=== PATIENT | female | born 1980 | race Caucasian/White ===

== ENCOUNTER 2017-12-07 10:58 | Observation (INO) ==
[2017-12-07 11:29] LABS: Basophils % 0.3 %; Eosinophils % 0.4 %; Hematocrit 41.5 % (35.3-44.9); Hemoglobin 13.4 g/dL (11.5-15.4); Immature Granulocytes % 0.3 % (0-4); Lymphocytes # 1.9 K/mcL (0.6-4.6); Lymphocytes % 27.7 %; Mean Corpuscular HGB Conc 32.3 g/dL (31.6-35.5); Mean Corpuscular Hemoglobin 28.5 pg (28.0-33.3); Mean Corpuscular Volume 88.3 fL (83.0-100.0); Mean Platelet Volume 10.8 fL (9.4-12.4); Monocytes # 0.4 K/mcL (0.0-1.3); Monocytes % 5.7 %; Neutrophils # 4.4 K/mcL (1.6-8.9); Platelet Count 241 K/mcL (140-400); Red Cell Distribution Width 12.2 % (11.5-14.5); Segmented Neutrophils % 65.6 %
[2017-12-07 11:48] LABS: BUN/Creatinine Ratio 14 (6-26); Blood Urea Nitrogen 9 mg/dL (6-20); Calcium 9.7 mg/dL (8.6-10.3); Carbon Dioxide 28 mEq/L (23-29); Chloride 106 mEq/L (98-107); Glucose 137 mg/dL (70-105); Osmolality,Calculated 291 (280-300); Potassium 3.4 mEq/L (3.5-5.1); Sodium 140 mEq/L (136-145); eGFR For Non-African Americans > 60 (> 60)
--- NOTE | 2017-12-07 11:54 | Emergency Department Note ---
Disposition Clinical Impression: Depression Qualifiers: Depression Type: unspecified Qualified Code(s): F32.9 - Major depressive disorder, single episode, unspecified Disposition: Admitted As Inpatient Psych HPI - General Chief Complaint: ED Psychiatric Symptoms Stated Complaint: SI Source: patient, EMS Limitations: no limitations Nursing Notes Reviewed: Yes Vital Signs Reviewed: Yes - History of Present Illness HPI Narrative: Patient presents today for evaluation after she sought help with Chaz Gambino who is her primary care physician. He handles her diabetes. She went to talk with him secondary to recent acute life stressors. Her was recently arrested for dealing drugs. He states that he has been doing drugs for the last 3 years. He does heroin 12-13 times a day. She states that she had no idea. She is blindsided. Patient states that he has cheated on her in the past and all of her emotions have come to the forefront. She had thoughts of decreased self worth. She thought it might be better off without her. She thought about driving her car into a telephone pole. The patient presents now stating that she was just very stressed. Patient states no homicidal thoughts or visual or auditory hallucinations. Patient has not otherwise been plugged into counseling or had other resources. Patient will need 1A evaluation. - Related Data Home Medications Medication Instructions Recorded Confirmed No Known Home Drugs 12/07/17 12/07/17 Allergies Allergy/AdvReac Type Severity Reaction Status Date / Time diltiazem [From Cardizem] Allergy Hives Verified 12/07/17 11:05 levofloxacin [From Levaquin] Allergy Hives Verified 12/07/17 11:05 Review of Systems: CONSTITUTIONAL: No weight loss, fever, chills, weakness or fatigue. HEENT: Eyes: No visual changes. Ears, Nose, Throat: No hearing loss, difficulty talking or unable to swallow. SKIN: No rash or itching. CARDIOVASCULAR: No chest pain, chest pressure or chest discomfort. No palpitations or edema. RESPIRATORY: No shortness of breath, cough or sputum. GASTROINTESTINAL: No anorexia, nausea, vomiting or diarrhea. No abdominal pain or blood. GENITOURINARY: No burning on urination or hematuria. NEUROLOGICAL: No headache, dizziness, syncope, paralysis, ataxia, numbness or tingling in the extremities. No change in bowel or bladder control. MUSCULOSKELETAL: No muscle pain, back pain, joint pain or stiffness. Psych: Suicidal thoughts and depression Past Medical History - Past Medical History Medical history: Reports: diabetes, SVT Surgical history: Reports: non-contributory Psychiatric history: Reports: no psych history [employer] history: Reports: non-contributory, bilateral tubal ligation - Social History Smoking Status: Never smoker Smokeless Tobacco Status: No Alcohol use: Reports: none Drug use: Reports: none Physical Exam General: Well appearing, nontoxic, no acute distress Head: Normocephalic Atraumatic Eyes: PERRL, EOMI ENT: Airway patent, no stridor Neck: supple, no meningismus Chest: Lungs clear to auscultation bilateral Cardiac: Regular rate and rhythm, no murmurs, rubs or gallops Abdomen: soft, nontender, nondistended; no guarding, rebound, or tenderness to percussion Musculoskeletal: Calves symmetric, nontender, no palpable cord Skin: No rash, normal skin tone Neuro: Alert and Oriented to person, place, and time; No focal deficit, CN 2-12 symmetric and intact - General Limitations: no limitations General appearance: alert, in no apparent distress Course Vital Signs Temperature 98.1 F 12/07/17 11:01 Pulse Rate 76 12/07/17 11:01 Respiratory Rate 16 12/07/17 11:01 Blood Pressure 135/87 12/07/17 11:01 O2 Sat by Pulse Oximetry 98 12/07/17 11:01 Temperature 98.0 F 12/07/17 14:20 Pulse Rate 85 12/07/17 14:20 Respiratory Rate 16 12/07/17 14:20 Blood Pressure 144/95 12/07/17 14:20 O2 Sat by Pulse Oximetry 98 12/07/17 11:01 Oxygen Delivery Oxygen Delivery Room Air Psych - Lab Data Result diagrams: 12/07/17 11:17 12/07/17 11:17 Lab Results 12/07/17 12/07/17 12/07/17 Range/Units 11:17 11:17 11:35 WBC 6.7 (4.3-11.1) K/mcL RBC 4.70 (3.82-4.97) M/mcL Hgb 13.4 (11.5-15.4) g/dL Hct 41.5 (35.3-44.9) % MCV 88.3 (83.0-100.0) fL MCH 28.5 (28.0-33.3) pg MCHC 32.3 (31.6-35.5) g/dL RDW 12.2 (11.5-14.5) % Plt Count 241 (140-400) K/mcL MPV 10.8 (9.4-12.4) fL Immature Gran % 0.3 (0-4) % Seg Neutrophils % 65.6 % Lymphocytes % 27.7 % Monocytes % 5.7 % Eosinophils % 0.4 % Basophils % 0.3 % Neutrophils # 4.4 (1.6-8.9) K/mcL Lymphocytes # 1.9 (0.6-4.6) K/mcL Monocytes # 0.4 (0.0-1.3) K/mcL Eosinophils # 0.0 (0.0-0.6) K/mcL Basophils # 0.0 (0.0-0.2) K/mcL Sodium 140 (136-145) mEq/L Potassium 3.4 L (3.5-5.1) mEq/L Chloride 106 (98-107) mEq/L Carbon Dioxide 28 (23-29) mEq/L BUN 9 (6-20) mg/dL Creatinine 0.63 (0.60-1.20) mg/dL Est GFR ( Amer) > 60 (> 60) Est GFR (Non-Af Amer) > 60 (> 60) BUN/Creatinine Ratio 14 (6-26) Glucose 137 H (70-105) mg/dL Calculated Osmolality 291 (280-300) Calcium 9.7 (8.6-10.3) mg/dL Urine Color (Yellow) Urine Clarity (Clear) Urine pH (5.0-8.0) pH Units Ur Specific [place] (1.010-1.025) Urine Protein (Neg-Trace) mg/dL Urine Glucose (UA) (Normal) mg/dL Urine Ketones (Negative) mg/dL Urine Blood (Negative) Urine Nitrite (Negative) Urine Bilirubin (Negative) Urine Urobilinogen (Normal) mg/dL Ur Leukocyte Esterase (Negative) Urine Microscopic RBC (0-3) per hpf Urine Microscopic WBC (0-3) per hpf Ur Squamous Epith Cells (None-Few) per lpf Urine Bacteria (None-Few) per hpf Hyaline Casts (None-Few) per lpf Ur Culture Indicated? (NO) Urine Test Negative (Negative) Urine Opiates Screen (Rzrafy=537) ng/mL Ur Barbiturates Screen (Fypufa=158) ng/mL Ur Phencyclidine Scrn (Cutoff=25) ng/mL Ur Amphetamines Screen (Klbjgh=1900) ng/mL U Benzodiazepines Scrn (Bnvkxd=302) ng/mL Urine Cocaine Screen (Cutoff= 300) ng/mL U Marijuana (THC) Screen (Cutoff = 50) ng/mL Ethyl Alcohol < 10 (0-10) mg/dL 12/07/17 12/07/17 Range/Units 11:35 11:35 WBC (4.3-11.1) K/mcL RBC (3.82-4.97) M/mcL Hgb (11.5-15.4) g/dL Hct (35.3-44.9) % MCV (83.0-100.0) fL MCH (28.0-33.3) pg MCHC (31.6-35.5) g/dL RDW (11.5-14.5) % Plt Count (140-400) K/mcL MPV (9.4-12.4) fL Immature Gran % (0-4) % Seg Neutrophils % % Lymphocytes % % Monocytes % % Eosinophils % % Basophils % % Neutrophils # (1.6-8.9) K/mcL Lymphocytes # (0.6-4.6) K/mcL Monocytes # (0.0-1.3) K/mcL Eosinophils # (0.0-0.6) K/mcL Basophils # (0.0-0.2) K/mcL Sodium (136-145) mEq/L Potassium (3.5-5.1) mEq/L Chloride (98-107) mEq/L Carbon Dioxide (23-29) mEq/L BUN (6-20) mg/dL Creatinine (0.60-1.20) mg/dL Est GFR ( Amer) (> 60) Est GFR (Non-Af Amer) (> 60) BUN/Creatinine Ratio (6-26) Glucose (70-105) mg/dL Calculated Osmolality (280-300) Calcium (8.6-10.3) mg/dL Urine Color Yellow (Yellow) Urine Clarity Cloudy A (Clear) Urine pH 7.0 (5.0-8.0) pH Units Ur Specific [place] 1.018 (1.010-1.025) Urine Protein Trace (Neg-Trace) mg/dL Urine Glucose (UA) Normal (Normal) mg/dL Urine Ketones Trace H (Negative) mg/dL Urine Blood Negative (Negative) Urine Nitrite Negative (Negative) Urine Bilirubin Negative (Negative) Urine Urobilinogen Normal (Normal) mg/dL Ur Leukocyte Esterase Large H (Negative) Urine Microscopic RBC 50-100 H (0-3) per hpf Urine Microscopic WBC 5-15 H (0-3) per hpf Ur Squamous Epith Cells Many H (None-Few) per lpf Urine Bacteria Moderate H (None-Few) per hpf Hyaline Casts Few (None-Few) per lpf Ur Culture Indicated? NO. (NO) Urine Test (Negative) Urine Opiates Screen Negative (Xqoqll=606) ng/mL Ur Barbiturates Screen Negative (Watbsy=879) ng/mL Ur Phencyclidine Scrn Negative (Cutoff=25) ng/mL Ur Amphetamines Screen Negative (Dbsimb=1498) ng/mL U Benzodiazepines Scrn Negative (Nyxojq=726) ng/mL Urine Cocaine Screen Negative (Cutoff= 300) ng/mL U Marijuana (THC) Screen Negative (Cutoff = 50) ng/mL Ethyl Alcohol (0-10) mg/dL Psychiatric Medical Clearance - Medical Clearance Checklist Medical History: Abdominal pain (Inactive) Acute bronchitis (Inactive) Chest pain (Inactive) Dental abscess (Inactive) GERD (gastroesophageal reflux disease) (Inactive) Lateral epicondylitis of right elbow (Inactive) Syncope (Inactive) No Social History Section defined Current Vitals: Last Vital Signs Temp 98.0 F 12/07/17 14:20 Pulse 85 12/07/17 14:20 Resp 16 12/07/17 14:20 BP 144/95 12/07/17 14:20 Pulse Ox 98 12/07/17 11:01 Psychiatric Lab Panel: Drug Levels and Toxicity 12/07/17 12/07/17 11:17 11:35 Urine Opiates Screen Negative Ur Barbiturates Screen Negative Ur Phencyclidine Scrn Negative Ur Amphetamines Screen Negative U Benzodiazepines Scrn Negative Urine Cocaine Screen Negative U Marijuana (THC) Screen Negative Ethyl Alcohol < 10 Abnormal Labs: Abnormal lab results Potassium 3.4 mEq/L (3.5-5.1) L 12/07/17 11:17 Glucose 137 mg/dL (70-105) H 12/07/17 11:17 Urine Clarity Cloudy (Clear) A 12/07/17 11:35 Urine Ketones Trace mg/dL (Negative) H 12/07/17 11:35 Ur Leukocyte Esterase Large (Negative) H 12/07/17 11:35 Urine Microscopic RBC 50-100 per hpf (0-3) H 12/07/17 11:35 Urine Microscopic WBC 5-15 per hpf (0-3) H 12/07/17 11:35 Ur Squamous Epith Cells Many per lpf (None-Few) H 12/07/17 11:35 Urine Bacteria Moderate per hpf (None-Few) H 12/07/17 11:35 Statement of Medical Clearance: I have evaluated the patient, reviewed diagnostic information, and certify that the patient's medical condition is sufficiently stable that transfer to the psychiatric unit does not pose a significant risk of deterioration.
--- NOTE | 2017-12-07 11:55 | Emergency Department Note ---
START Narrative - START START: I examined this patient and my medical decision-making was reviewed with the emergency medicine resident. I agree with the documented findings, disposition and treatment plan as described except to the extent set forth below. Patient seen with emergency medicine resident Dr. Garth Pedroza, Please see a copy of his note for details of the H&P, ED evaluation, management and disposition. I have independently evaluated the patient and confirmed appropriate portions of the history and physical exam. Briefly: 37-year-old female comes in [facility] has reasonable mental health services will admit her for suicidal ideations. She plans" driving her car into a wall". Patient's physical examination is benign. No prior inpatient mental health hospitalizations. Awaiting screening labs and then patient will be admitted to mental health services. Disposition pending.
[2017-12-07 12:04] LABS: Bilirubin,Urine Negative (Negative); Blood,Urine Negative (Negative); Clarity,Urine Cloudy (Clear); Color,Urine Yellow (Yellow); Glucose,Urine (UA) Normal (Normal); Ketones,Urine Trace mg/dL (Negative); Leukocyte Esterase,Urine Large (Negative); Nitrite,Urine Negative (Negative); Protein,Urine Trace mg/dL (Neg-Trace); Specific Gravity,Urine 1.018 (1.010-1.025); Urobilinogen,Urine Normal (Normal)
[2017-12-07 12:06] LABS: Amphetamine Screen,Urine Negative ng/mL (Cutoff=1000); Barbiturate Screen,Urine Negative ng/mL (Cutoff=200); Benzodiazepines Screen,Urine Negative ng/mL (Cutoff=200); Cannabinoid Screen,Urine Negative ng/mL (Cutoff = 50); Cocaine Screen,Urine Negative ng/mL (Cutoff= 300); Opiate Screen,Urine Negative ng/mL (Cutoff=300); Phencyclidine Screen,Urine Negative ng/mL (Cutoff=25)
[2017-12-07 12:07] LABS: Bacteria,Urine Moderate per hpf (None-Few); Hyaline Casts,Urine Few per lpf (None-Few); RBC,Urine 50-100 per hpf (0-3); Squamous Epithelial Cell,Urine Many per lpf (None-Few)
[2017-12-07 13:39] LABS: Ethanol < 10 mg/dL (0-10)
[2017-12-07] MEDS ORDERED: *HR* LORazepam 2 MG/ML VIAL IM PRN (16:11)
[2017-12-07] MEDS ORDERED: Acetaminophen 325 MG TABLET PO PRN (16:11)
[2017-12-07] MEDS ORDERED: Mag Hydrox/Al Hydrox/Simeth 30 ML UDC PO PRN (16:11)
[2017-12-07] MEDS ORDERED: MOM Conc 10 ML UD.LIQ PO PRN (16:11)
[2017-12-07] MEDS ORDERED: hydrOXYzine pamoate 25 MG CAPSULE PO PRN (16:11)
[2017-12-07] MEDS ORDERED: *HR* LORazepam 1 MG TABLET PO PRN (16:11)
[2017-12-07] MEDS ORDERED: Haloperidol Lactate 5 MG/ML VIAL IM PRN (16:11)
[2017-12-07] MEDS ORDERED: traZODone 50 MG TABLET PO PRN (16:11)
[2017-12-08 09:31] VITALS: BP 135/99
--- NOTE | 2017-12-08 10:38 | Psychiatry History & Physical ---
Date of Encounter: 12/08/17 History of Present Illness Medicare Admission Attestation: For traditional Medicare patients the provided hospital inpatient services are reasonable and necessary and in the case of services not specified as inpatient -only under 42 CFR 419.22 (n), that they are appropriately provided as inpatient services in accordance 42 CFR 412.3. For Critical Access Hospital the patient may reasonably be expected to be discharged or transferred to a hospital within 96 hours after admission to the Critical Access Hospital. History of Present Illness: Ms. Saha is a 37 year old female Past Med Surg Social Fam HX - Past Medical History Medical history: diabetes, SVT - Past Surgical History Surgical History: non-contributory - Social History Smoking Status: Never smoker Smokeless Tobacco Status: No Alcohol use: none Drug use: none Medications & Allergies No Known Home Drugs 12/07/17 [History] 3 Allergy/AdvReac Type Severity Reaction Status Date / Time diltiazem [From Cardizem] Allergy Hives Verified 12/07/17 11:05 levofloxacin [From Levaquin] Allergy Hives Verified 12/07/17 11:05 Results - Vital Signs Vital signs: Temp Pulse Resp BP Pulse Ox 98.1 F 105 16 135/99 98 12/08/17 09:00 12/08/17 09:00 12/08/17 09:00 12/08/17 09:00 12/07/17 11:01 - Labs Labs: Laboratory Last Values WBC 6.7 K/mcL (4.3-11.1) 12/07/17 11:17 RBC 4.70 M/mcL (3.82-4.97) 12/07/17 11:17 Hgb 13.4 g/dL (11.5-15.4) 12/07/17 11:17 Hct 41.5 % (35.3-44.9) 12/07/17 11:17 MCV 88.3 fL (83.0-100.0) 12/07/17 11:17 MCH 28.5 pg (28.0-33.3) 12/07/17 11:17 MCHC 32.3 g/dL (31.6-35.5) 12/07/17 11:17 RDW 12.2 % (11.5-14.5) 12/07/17 11:17 Plt Count 241 K/mcL (140-400) 12/07/17 11:17 MPV 10.8 fL (9.4-12.4) 12/07/17 11:17 Immature Gran % 0.3 % (0-4) 12/07/17 11:17 Seg Neutrophils % 65.6 % 12/07/17 11:17 Lymphocytes % 27.7 % 12/07/17 11:17 Monocytes % 5.7 % 12/07/17 11:17 Eosinophils % 0.4 % 12/07/17 11:17 Basophils % 0.3 % 12/07/17 11:17 Neutrophils # 4.4 K/mcL (1.6-8.9) 12/07/17 11:17 Lymphocytes # 1.9 K/mcL (0.6-4.6) 12/07/17 11:17 Monocytes # 0.4 K/mcL (0.0-1.3) 12/07/17 11:17 Eosinophils # 0.0 K/mcL (0.0-0.6) 12/07/17 11:17 Basophils # 0.0 K/mcL (0.0-0.2) 12/07/17 11:17 Sodium 140 mEq/L (136-145) 12/07/17 11:17 Potassium 3.4 mEq/L (3.5-5.1) L 12/07/17 11:17 Chloride 106 mEq/L (98-107) 12/07/17 11:17 Carbon Dioxide 28 mEq/L (23-29) 12/07/17 11:17 BUN 9 mg/dL (6-20) 12/07/17 11:17 Creatinine 0.63 mg/dL (0.60-1.20) 12/07/17 11:17 Est GFR ( Amer) > 60 (> 60) 12/07/17 11:17 Est GFR (Non-Af Amer) > 60 (> 60) 12/07/17 11:17 BUN/Creatinine Ratio 14 (6-26) 12/07/17 11:17 Glucose 137 mg/dL (70-105) H 12/07/17 11:17 Calculated Osmolality 291 (280-300) 12/07/17 11:17 Calcium 9.7 mg/dL (8.6-10.3) 12/07/17 11:17 Urine Color Yellow (Yellow) 12/07/17 11:35 Urine Clarity Cloudy (Clear) A 12/07/17 11:35 Urine pH 7.0 pH Units (5.0-8.0) 12/07/17 11:35 Ur Specific [place] 1.018 (1.010-1.025) 12/07/17 11:35 Urine Protein Trace mg/dL (Neg-Trace) 12/07/17 11:35 Urine Glucose (UA) Normal mg/dL (Normal) 12/07/17 11:35 Urine Ketones Trace mg/dL (Negative) H 12/07/17 11:35 Urine Blood Negative (Negative) 12/07/17 11:35 Urine Nitrite Negative (Negative) 12/07/17 11:35 Urine Bilirubin Negative (Negative) 12/07/17 11:35 Urine Urobilinogen Normal mg/dL (Normal) 12/07/17 11:35 Ur Leukocyte Esterase Large (Negative) H 12/07/17 11:35 Urine Microscopic RBC 50-100 per hpf (0-3) H 12/07/17 11:35 Urine Microscopic WBC 5-15 per hpf (0-3) H 12/07/17 11:35 Ur Squamous Epith Cells Many per lpf (None-Few) H 12/07/17 11:35 Urine Bacteria Moderate per hpf (None-Few) H 12/07/17 11:35 Hyaline Casts Few per lpf (None-Few) 12/07/17 11:35 Ur Culture Indicated? NO. (NO) 12/07/17 11:35 Urine Test Negative (Negative) 12/07/17 11:35 Urine Opiates Screen Negative ng/mL (Aohxar=718) 12/07/17 11:35 Ur Barbiturates Screen Negative ng/mL (Bfbiyd=665) 12/07/17 11:35 Ur Phencyclidine Scrn Negative ng/mL (Cutoff=25) 12/07/17 11:35 Ur Amphetamines Screen Negative ng/mL (Prkirn=1201) 12/07/17 11:35 U Benzodiazepines Scrn Negative ng/mL (Bdqifd=287) 12/07/17 11:35 Urine Cocaine Screen Negative ng/mL (Cutoff= 300) 12/07/17 11:35 U Marijuana (THC) Screen Negative ng/mL (Cutoff = 50) 12/07/17 11:35 Ethyl Alcohol < 10 mg/dL (0-10) 12/07/17 11:17
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
== END 2017-12-08 13:20 | disposition home or self-care (01) ==
LOC: EMEROO 10:58 → INTOOBSV 14:05 → 1ANU 14:05
PROVIDERS: ADMIT Student in an Organized Health Care Education/Training Program; ATTEND Student in an Organized Health Care Education/Training Program

== ENCOUNTER 2020-10-02 16:27 | Inpatient (IN) ==
[2020-10-02] MEDS ORDERED: *HR* FentaNYL (PF) 100 MCG/2 ML VIAL ONE (20:26)
[2020-10-02] MEDS ORDERED: *HR* Propofol 200 MG/20 ML VIAL IVP ONE (20:27)
[2020-10-02] MEDS ORDERED: Ondansetron 4 MG/2 ML VIAL ONE (20:32)
[2020-10-02] MEDS ORDERED: Dexamethasone 4 MG/ML VIAL ONE (20:32)
[2020-10-02] MEDS ORDERED: *HR* Succinylcholine 200 MG/10 ML VIAL IVP ONE (20:32)
[2020-10-02] MEDS ORDERED: Lidocaine -MPF 2% 2 ML VIAL ONE (20:32)
[2020-10-02] MEDS ORDERED: *HR* HYDROmorphone PF 0.5 MG/0.5 ML SYRINGE IVP PRN (20:43)
[2020-10-02] MEDS ORDERED: Scopolamine Patch 1.5 MG PATCH.TD72 TD ONE (20:43)
[2020-10-02] MEDS ORDERED: Ondansetron 4 MG/2 ML VIAL IVP PRN (20:43)
[2020-10-02] MEDS ORDERED: Promethazine 6.25 MG in Water for inj. (sterile) 20 ML IVPB PRN (20:43)
[2020-10-02] MEDS ORDERED: *HR* OxyCODONE Immed Rel 5 MG TABLET PO PRN (20:43)
[2020-10-02] MEDS ORDERED: Isovue-300 50ML VIAL ONE (20:56)
[2020-10-02] MEDS ORDERED: Acetaminophen 325 MG TABLET PO PRN ×2 (22:33→23:52)
[2020-10-02] MEDS ORDERED: Ondansetron ODT 4 MG TAB.RAPDIS SL PRN (22:33)
[2020-10-02] MEDS ORDERED: Naloxone 0.4 MG/ML INJ IVP PRN ×2 (22:33→23:52)
[2020-10-02] MEDS ORDERED: *HR* Meperidine 25 MG/ML SYRINGE IVP PRN (22:35)
[2020-10-02] MEDS ORDERED: *HR* Labetalol 20 MG/4 ML SYRINGE IVP ONE (22:42)
[2020-10-02] MEDS ORDERED: 0.9 % Sodium Chloride 1,000 ML IVC SCH (22:45)
[2020-10-02] MEDS ORDERED: *HR* Labetalol 20 MG/4 ML SYRINGE IVP PRN (22:47)
[2020-10-02] MEDS ORDERED: Levalbuterol Neb 0.63 MG/3 ML IH STA (22:55)
[2020-10-02] MEDS ORDERED: Hyoscyamine SL 0.125 MG TAB.SUBL SL PRN (23:52)
[2020-10-02] MEDS ORDERED: *HR* OxyCODONE/APAP 5/325 TABLET PO PRN (23:52)
[2020-10-03] MEDS: 0.9 % Sodium Chloride 1,000 ML IVC SCH ×3 (00:14→15:53)
[2020-10-03 00:43] LABS: Hematocrit 35.7 % (35.3-44.9); Hemoglobin 11.3 g/dL (11.5-15.4); Immature Platelets 7.6 % (1.1-6.1); Lymphocytes # 0.1 K/mcL (0.6-4.6); Mean Corpuscular HGB Conc 31.7 g/dL (31.6-35.5); Mean Corpuscular Hemoglobin 28.2 pg (28.0-33.3); Mean Platelet Volume 11.7 fL (9.4-12.4); Red Blood Count 4.01 M/mcL (3.82-4.97); Red Cell Distribution Width 14.6 % (11.5-14.5); White Blood Count 2.2 K/mcL (4.3-11.1)
[2020-10-03 00:59] LABS: Calcium 7.8 mg/dL (8.6-10.3); Potassium 3.8 mEq/L (3.5-5.1)
[2020-10-03 01:29] LABS: Platelet Count 89 K/mcL (140-400)
[2020-10-03 01:32] LABS: Anisocytosis 1+ (Not Present); Neutrophils # 2.1 K/mcL (1.6-8.9); Platelet Estimate Decreased (Normal)
[2020-10-03] MEDS ORDERED: 0.9 % Sodium Chloride 1,000 ML IVC ONE (02:04)
[2020-10-03] MEDS ORDERED: Ringers Solution, Lactated 1,000 ML IVC ONE (04:58)
[2020-10-03 05:09] LABS: Hemoglobin 10.5 g/dL (11.5-15.4)
[2020-10-03 05:11] LABS: Hematocrit 32.6 % (35.3-44.9); Immature Platelets 5.9 % (1.1-6.1); Mean Corpuscular HGB Conc 32.2 g/dL (31.6-35.5); Mean Corpuscular Hemoglobin 28.5 pg (28.0-33.3); Mean Corpuscular Volume 88.3 fL (83.0-100.0); Mean Platelet Volume 12.2 fL (9.4-12.4); Red Blood Count 3.69 M/mcL (3.82-4.97); Red Cell Distribution Width 14.7 % (11.5-14.5); White Blood Count 8.6 K/mcL (4.3-11.1)
[2020-10-03 05:27] LABS: Platelet Count 74 K/mcL (140-400)
[2020-10-03 05:29] LABS: Calcium 7.2 mg/dL (8.6-10.3); Lymphocytes # 0.2 K/mcL (0.6-4.6); Monocytes # 0.3 K/mcL (0.0-1.3); Neutrophils # 7.8 K/mcL (1.6-8.9); Potassium 3.1 mEq/L (3.5-5.1)
[2020-10-03 05:30] LABS: Anisocytosis 1+ (Not Present); Platelet Estimate Decreased (Normal)
[2020-10-03] MEDS ORDERED: Levalbuterol 1 PUFF INHALER IH PRN (05:30)
[2020-10-03] MEDS ORDERED: Levalbuterol Neb 0.63 MG/3 ML IH PRN (05:39)
[2020-10-03] MEDS ORDERED: Levalbuterol Neb 0.63 MG/3 ML ONE (05:41)
[2020-10-03] MEDS ORDERED: *HR* Dextrose 50 % in Water (Vial) 50 ML VIAL IVP PRN (08:04)
[2020-10-03] MEDS ORDERED: D5% in Water 1,000 ML IVC PRN (08:04)
[2020-10-03] MEDS ORDERED: Dextrose Gel 15 GM/37.5 ML TUBE PO PRN ×2 (08:04)
[2020-10-03] MEDS: Ondansetron 4 MG/2 ML VIAL IVP PRN ×3 (08:34→20:42)
[2020-10-03] MEDS ORDERED: cefTRIAXone 1,000 MG in 0.9 % Sodium Chloride Mini Bag 100 ML IVPB SCH (09:00)
[2020-10-03] MEDS ORDERED: cefTRIAXone 1,000 MG in Water for inj. (sterile) 10 ML IVP SCH (09:00)
[2020-10-03] MEDS ORDERED: *HR* Heparin 5,000 UNIT/ML VIAL IVP PRN ×2 (10:19)
[2020-10-03] MEDS ORDERED: *HR* Heparin 5,000 UNIT/ML VIAL IVP ONE (10:19)
[2020-10-03] MEDS ORDERED: Perflutren Lipid Microsphere 1.3 ML in 0.9 % Sodium Chloride 8.7 ML IVP PRN (10:19)
[2020-10-03] MEDS ORDERED: Heparin 25,000UNIT/250ML 1/2NS 25,000 UNIT/250 ML IV.SOLN IVC SCH (10:30)
[2020-10-03 10:56] LABS: Hemoglobin 10.6 g/dL (11.5-15.4)
[2020-10-03 10:58] LABS: Hematocrit 33.2 % (35.3-44.9); Immature Platelets 5.4 % (1.1-6.1); Mean Corpuscular HGB Conc 31.9 g/dL (31.6-35.5); Mean Corpuscular Hemoglobin 28.3 pg (28.0-33.3); Mean Corpuscular Volume 88.8 fL (83.0-100.0); Mean Platelet Volume 11.9 fL (9.4-12.4); Red Blood Count 3.74 M/mcL (3.82-4.97); White Blood Count 12.9 K/mcL (4.3-11.1)
[2020-10-03 11:05] LABS: Heparin anti-factor XA UFH < 0.04 IU/mL (0.30-0.70); INR 1.5; Prothrombin Time 16.6 Seconds (9.4-12.1)
[2020-10-03] MEDS: Insulin LISPRO 300 UNITS/3 ML VIAL SUBQ SCH ×3 (12:19→21:25)
[2020-10-03] MEDS ORDERED: Albumin Human 5% 12.5 GM/250 ML IV.SOLN IVPB ONE (13:23)
[2020-10-03] MEDS ORDERED: Furosemide 40 MG/4 ML VIAL IVP ONE (13:23)
[2020-10-03] MEDS ORDERED: Furosemide 80 MG in 0.9 % Sodium Chloride 50 ML IVPB ONE (13:27)
[2020-10-03] MEDS ORDERED: *HR* Promethazine 25 MG/ML VIAL IM ONE (14:40)
[2020-10-03] MEDS ORDERED: Nitroglycerin 1 INCH/GM PACKET TP ONE (14:50)
[2020-10-03] MEDS ORDERED: *HR* Promethazine 25 MG/ML VIAL IM PRN (14:50)
[2020-10-03] MEDS ORDERED: CefTRIAXone 1,000 MG VIAL IM ONE (14:56)
[2020-10-03] MEDS ORDERED: cefTRIAXone 1,000 MG in Water for inj. (sterile) 10 ML IVP ONE (15:07)
[2020-10-03 17:23] LABS: Bilirubin,Total 1.8 mg/dL (0.3-1.0); Calcium 7.6 mg/dL (8.6-10.3); Magnesium 1.4 mg/dL (1.6-2.6); Phosphorous 4.3 mg/dL (2.7-4.5); Potassium 3.4 mEq/L (3.5-5.1)
[2020-10-03] MEDS: Calcium Gluconate 1gm/50mL 1 GM/50 ML BAG IVPB SCH ×2 (21:41→22:36)
[2020-10-04 03:39] LABS: Bacteria,Urine Few per hpf (None-Few); Bilirubin,Urine Negative (Negative); Blood,Urine Moderate (Negative); Clarity,Urine Turbid (Clear); Color,Urine Light-Yellow (Yellow); Glucose,Urine (UA) Normal (Normal); Hyaline Casts,Urine Few per lpf (None Seen); Ketones,Urine Negative (Negative); Leukocyte Esterase,Urine Large (Negative); Mucus,Urine Few per lpf (None-Few); Nitrite,Urine Negative (Negative); Protein,Urine 50 mg/dL (Neg-Trace); RBC,Urine TNTC per hpf (0-3); Specific Gravity,Urine 1.011 (1.010-1.025); Urobilinogen,Urine Normal (Normal); WBC,Urine 50-100 per hpf (0-3)
[2020-10-04 03:46] LABS: Protein/Creatinine Ratio,Urine 2.36 mg/mg (0.00-0.20); Sodium, Urine 100.6 mEq/L
[2020-10-04 06:25] LABS: Basophils % 0.2 %; Hematocrit 31.7 % (35.3-44.9); Hemoglobin 10.3 g/dL (11.5-15.4); Immature Granulocytes % 1.2 % (0-4); Lymphocytes # 0.7 K/mcL (0.6-4.6); Lymphocytes % 6.1 %; Mean Corpuscular HGB Conc 32.5 g/dL (31.6-35.5); Mean Corpuscular Hemoglobin 28.2 pg (28.0-33.3); Mean Corpuscular Volume 86.8 fL (83.0-100.0); Monocytes # 0.4 K/mcL (0.0-1.3); Monocytes % 3.4 %; Platelet Count 103 K/mcL (140-400); Red Blood Count 3.65 M/mcL (3.82-4.97); Red Cell Distribution Width 15.2 % (11.5-14.5); Segmented Neutrophils % 89.1 %; White Blood Count 11.6 K/mcL (4.3-11.1)
[2020-10-04 06:28] LABS: Neutrophils # 10.3 K/mcL (1.6-8.9)
[2020-10-04 06:40] LABS: VBG Ionized Calcium 1.05 mmol/L (1.15-1.35)
[2020-10-04 06:47] LABS: Albumin 2.9 g/dL (3.5-5.7); Albumin/Globulin Ratio 0.9 (1.1-2.2); Bilirubin,Total 2.1 mg/dL (0.3-1.0); Calcium 8.5 mg/dL (8.6-10.3); Globulin 3.2 g/dL (2.4-3.5); Potassium 3.6 mEq/L (3.5-5.1); Total Protein 6.1 g/dL (6.4-8.9)
[2020-10-04 06:50] LABS: Albumin 2.9 g/dL (3.5-5.7); Calcium 8.4 mg/dL (8.6-10.3); Magnesium 2.2 mg/dL (1.6-2.6); Phosphorous 4.4 mg/dL (2.7-4.5); Potassium 3.6 mEq/L (3.5-5.1)
[2020-10-04 07:00] LABS: Platelet Estimate Slight Decrease (Normal)
[2020-10-04 07:11] LABS: Folate 4.6 ng/mL (3.0-16.0)
[2020-10-04] MEDS: Insulin LISPRO 300 UNITS/3 ML VIAL SUBQ SCH ×4 (09:11→19:52)
[2020-10-04] MEDS: *HR* Heparin 5,000 UNIT/ML VIAL SQ SCH ×2 (09:13→18:09)
[2020-10-04] MEDS: cefTRIAXone 2,000 MG in 0.9 % Sodium Chloride Mini Bag 100 ML IVPB SCH (09:13)
[2020-10-04] MEDS ORDERED: *HR* LORazepam 0.5 MG TABLET PO ONE (19:43)
[2020-10-04] MEDS ORDERED: *HR* LORazepam 0.5 MG TABLET PO PRN (23:14)
[2020-10-05] MEDS ORDERED: Dexmedetomidine HCl 400 MCG/100 ML MLS IVC SCH (00:30)
[2020-10-05] MEDS ORDERED: 0.9 % Sodium Chloride 250 ML ONE (00:47)
[2020-10-05] MEDS: Ondansetron 4 MG/2 ML VIAL IVP PRN ×2 (02:57→11:00)
[2020-10-05] MEDS: *HR* Heparin 5,000 UNIT/ML VIAL SQ SCH ×2 (05:39→18:25)
[2020-10-05 05:57] LABS: VBG Ionized Calcium 0.95 mmol/L (1.15-1.35)
[2020-10-05 05:58] LABS: Hematocrit 32.4 % (35.3-44.9); Hemoglobin 10.3 g/dL (11.5-15.4); Immature Platelets 6.6 % (1.1-6.1); Mean Corpuscular HGB Conc 31.8 g/dL (31.6-35.5); Mean Corpuscular Hemoglobin 27.5 pg (28.0-33.3); Mean Corpuscular Volume 86.4 fL (83.0-100.0); Mean Platelet Volume 12.2 fL (9.4-12.4); Red Blood Count 3.75 M/mcL (3.82-4.97); Red Cell Distribution Width 15.5 % (11.5-14.5); White Blood Count 9.1 K/mcL (4.3-11.1)
[2020-10-05 06:25] LABS: Albumin 2.9 g/dL (3.5-5.7); Bilirubin,Total 1.1 mg/dL (0.3-1.0); Calcium 8.3 mg/dL (8.6-10.3); Globulin 2.8 g/dL (2.4-3.5); Magnesium 1.9 mg/dL (1.6-2.6); Phosphorous 3.8 mg/dL (2.7-4.5); Potassium 3.2 mEq/L (3.5-5.1); Total Protein 5.7 g/dL (6.4-8.9)
[2020-10-05 08:41] LABS: Troponin I 0.53 ng/mL (< 0.04)
[2020-10-05] MEDS: Insulin LISPRO 300 UNITS/3 ML VIAL SUBQ SCH ×4 (09:12→20:40)
[2020-10-05] MEDS: cefTRIAXone 2,000 MG in 0.9 % Sodium Chloride Mini Bag 100 ML IVPB SCH (09:53)
[2020-10-05] MEDS ORDERED: Levalbuterol Neb 0.63 MG/3 ML IH PRN (12:43)
[2020-10-05] MEDS ORDERED: *HR* Dextrose 50 % in Water (Vial) 50 ML VIAL IVP PRN (12:43)
[2020-10-05] MEDS ORDERED: Dextrose Gel 15 GM/37.5 ML TUBE PO PRN ×2 (12:43)
[2020-10-05] MEDS ORDERED: D5% in Water 1,000 ML IVC PRN (12:43)
[2020-10-05] MEDS ORDERED: Acetaminophen 325 MG TABLET PO PRN (12:43)
[2020-10-05] MEDS ORDERED: *HR* Promethazine 25 MG/ML VIAL IM PRN (12:43)
[2020-10-05] MEDS ORDERED: *HR* OxyCODONE/APAP 5/325 TABLET PO PRN (12:43)
[2020-10-05] MEDS ORDERED: Hyoscyamine SL 0.125 MG TAB.SUBL SL PRN (12:43)
[2020-10-05] MEDS ORDERED: Naloxone 0.4 MG/ML INJ IVP PRN (12:43)
[2020-10-05] MEDS ORDERED: Ondansetron 4 MG/2 ML VIAL IVP PRN (12:43)
[2020-10-05] MEDS ORDERED: Potassium Chloride Elixir 20 MEQ/15 ML UDC PO ONE (13:48)
[2020-10-06 04:58] LABS: Hematocrit 32.2 % (35.3-44.9); Hemoglobin 10.3 g/dL (11.5-15.4); Mean Corpuscular Hemoglobin 27.2 pg (28.0-33.3); Mean Corpuscular Volume 85.2 fL (83.0-100.0); Mean Platelet Volume 12.1 fL (9.4-12.4); Platelet Count 101 K/mcL (140-400); Red Blood Count 3.78 M/mcL (3.82-4.97); Red Cell Distribution Width 15.2 % (11.5-14.5); White Blood Count 11.1 K/mcL (4.3-11.1)
[2020-10-06 05:16] LABS: Calcium 8.3 mg/dL (8.6-10.3)
[2020-10-06] MEDS: *HR* Heparin 5,000 UNIT/ML VIAL SQ SCH (05:24)
[2020-10-06] MEDS: cefTRIAXone 2,000 MG in 0.9 % Sodium Chloride Mini Bag 100 ML IVPB SCH (08:31)
[2020-10-06] MEDS: Insulin LISPRO 300 UNITS/3 ML VIAL SUBQ SCH ×4 (08:49→21:28)
[2020-10-06] MEDS ORDERED: Azithromycin 500 MG in 0.9 % Sodium Chloride 250 ML IVPB ONE (14:24)
[2020-10-06] MEDS ORDERED: Ipratropium Neb 0.5 MG NEBULIZER IH PRN (14:35)
[2020-10-06] MEDS: Levalbuterol Neb 0.63 MG/3 ML IH SCH ×2 (16:26→21:22)
[2020-10-07] MEDS: Levalbuterol Neb 0.63 MG/3 ML IH SCH ×2 (03:01→10:39)
[2020-10-07 04:44] LABS: Basophils % 0.3 %; Eosinophils # 0.1 K/mcL (0.0-0.6); Eosinophils % 0.4 %; Hematocrit 29.7 % (35.3-44.9); Hemoglobin 9.9 g/dL (11.5-15.4); Immature Granulocytes % 4.5 % (0-4); Lymphocytes # 1.3 K/mcL (0.6-4.6); Mean Corpuscular HGB Conc 33.3 g/dL (31.6-35.5); Mean Corpuscular Hemoglobin 28.5 pg (28.0-33.3); Mean Corpuscular Volume 85.6 fL (83.0-100.0); Mean Platelet Volume 11.3 fL (9.4-12.4); Monocytes # 0.5 K/mcL (0.0-1.3); Monocytes % 4.5 %; Neutrophils # 9.2 K/mcL (1.6-8.9); Platelet Count 115 K/mcL (140-400); Red Blood Count 3.47 M/mcL (3.82-4.97); Red Cell Distribution Width 14.9 % (11.5-14.5); Segmented Neutrophils % 79.3 %; White Blood Count 11.7 K/mcL (4.3-11.1)
[2020-10-07 05:01] LABS: Magnesium 1.6 mg/dL (1.6-2.6); Phosphorous 1.8 mg/dL (2.7-4.5); Potassium 3.1 mEq/L (3.5-5.1)
[2020-10-07] MEDS: Potassium Chloride Elixir 20 MEQ/15 ML UDC PO SCH ×2 (09:43→12:19)
[2020-10-07] MEDS: Insulin LISPRO 300 UNITS/3 ML VIAL SUBQ SCH ×2 (09:44→12:17)
[2020-10-07] MEDS: cefTRIAXone 2,000 MG in 0.9 % Sodium Chloride Mini Bag 100 ML IVPB SCH (09:58)
[2020-10-07 12:05] VITALS: BP 127/86
[2020-10-08] MEDS ORDERED: Metoprolol XL (24 HR) Succ 25 MG TAB.ER.24H PO SCH (09:00)
[2020-10-08] MEDS ORDERED: Aspirin Enteric Coated 81 MG Tablet PO SCH (09:00)
== END 2020-10-07 15:44 | disposition home or self-care (01) | DRG 720 ==
LOC: 3ANU → SUATTDRO 19:12 → OBSVTOIN 19:12 → ICNU 10-03 04:40 → 3ANU 10-05 13:42
PROVIDERS: ADMIT General Practice; ATTEND Internal Medicine